=== PATIENT | male | born 1960 | race Caucasian/White ===

== ENCOUNTER 2021-08-14 11:23 | Outpatient (REF) | payer MEDICARE, MEDICAID, SELFPAY ==
[2021-08-14 13:53] LABS: Baso%MD 0.5 %; Eos%MD 7.8 %; Hematocrit 33.6 % (42-52); Hemoglobin 10.8 g/dl (14.0-18.0); IG%MD 0.6 %; Lymph%MD 25.8 %; Mean Corpuscular HGB Conc 32.1 g/dl (31.0-36.0); Mean Corpuscular Hemoglobin 32.7 pg (27.0-33.0); Mean Corpuscular Volume 101.8 fL (80-98); Mean Platelet Volume 10.2 fL (9.4-12.4); Mono%MD 8.2 %; Neut%MD 57.1 %; Platelet Count 268 X10*3/uL (160-400); Red Cell Distribution Width 14.1 % (11.0-16.0)
[2021-08-14 14:05] LABS: Alanine Aminotransferase 19 U/L (0-40); Albumin Level 4.3 g/dL (3.5-5.0); Alkaline Phosphatase 139 U/L (39-117); Anion Gap 10 (12-20); Aspartate Amino Transferase 25 U/L (5-37); Bilirubin Total 3.9 mg/dL (0.0-1.0); Blood Urea Nitrogen 10 mg/dL (9-16); Calcium 9.3 mg/dL (8.4-10.2); Carbon Dioxide 29 mmol/L (22-29); Chloride 102 mmol/L (96-108); Estimated Glomerular Filt Rate > 60; Glucose Random 102 mg/dL (60-115); Lipase 52 U/L (8-78); Potassium 3.9 mmol/L (3.3-5.1); Sodium 137 mmol/L (135-145); Total Protein 7.4 g/dL (6.5-8.0)
[2021-08-14 15:11] LABS: Band Neutrophils Percent 1 % (3-5); Basophils Abs Manual 0.2 X10*3/uL (0.0-0.3); Basophils Percent Manual 2 % (0-1); Eosinophils Absolute Manual 0.9 X10*3/UL (0.0-0.8); Eosinophils Percent Manual 11 % (0-4); Lymphocytes Absolute Manual 1.4 X10*3/uL (0.6-4.8); Lymphocytes Percent Manual 17 % (20-40); Monocytes Absolute Manual 0.5 X10*3/uL (0.0-1.2); Monocytes Percent Manual 6 % (2-11); Neutrophils Absolute Manual 5.1 X10*3/uL (2.2-7.9); Neutrophils Percent Manual 63 % (45-73)
[2021-08-14 15:12] LABS: Platelet Estimate NORMAL (NORMAL); Platelet Morphology Comment NORMAL; RBC Morphology NORMAL
== END 2021-08-14 11:24 | disposition home or self-care (01) ==
LOC: HO.HMGCLDS 11:23
PROVIDERS: PCP Internal Medicine; Visit Provider Physician Assistant Medical
DX: R10.11 Right upper quadrant pain (principal); G89.18 Other acute postprocedural pain
CPT/HCPCS: 36415; 80053; 83690; 85007; 85027

== ENCOUNTER 2022-11-30 01:35 | Emergency (ER) | payer MEDICARE, MEDICAID, SELFPAY ==
--- NOTE | ~2022-11-30 | US_ITS ---
EXAMINATION: US ABDOMEN LIMITED CLINICAL INFORMATION: Right upper quadrant pain. Status post cholecystectomy. COMPARISON: CT abdomen/pelvis done earlier the same day. TECHNIQUE: Real-time imaging of the right upper quadrant abdominal viscera. FINDINGS: PANCREAS: Unremarkable. LIVER: Normal. The liver is normal in size. The liver contour is normal. Parenchymal echogenicity is normal. No focal hepatic lesion. There is no intrahepatic biliary duct dilatation seen. GALLBLADDER: Status post cholecystectomy. COMMON BILE DUCT: Normal in caliber measuring 0.6 cm in diameter. RIGHT KIDNEY: No hydronephrosis. Upper pole simple cyst measuring up to 1.9 cm. Findings are not clinically significant, and no dedicated followup imaging is recommended. The kidney measures 11.3 cm in maximum dimension. FREE FLUID: None. US/US abdomen limited IMPRESSION: Status post cholecystectomy. No intra- or extrahepatic biliary ductal dilatation.
--- NOTE | ~2022-11-30 | CT_ITS ---
EXAMINATION: CT ABDOMEN AND PELVIS WITH CONTRAST CLINICAL INFORMATION: Right lower quadrant pain COMPARISON: None TECHNIQUE: Multidetector volumetric images were obtained from the superior aspect of the liver through the pubic symphysis following administration 85 mL of Omnipaque 350 intravenous contrast. Sagittal and coronal reformatted images were obtained on the technologist's workstation. Oral contrast: No This CT examination was performed using dose optimization techniques as appropriate, variously including the following: *Automated exposure control *Adjustment of mA and/or kV according to patient size (this includes techniques or standardized protocols for targeted exams where dose is matched to indication/reason for exam; i.e. extremities or head) *Use of iterative reconstruction technique DLP: 552 mGy-cm FINDINGS: LUNG BASES: Mild bibasilar atelectasis/scarring. LIVER, GALLBLADDER, AND BILIARY TREE: The liver is normal in size, shape, and attenuation. No focal hepatic lesion or biliary ductal dilatation is present. Gallbladder appears absent. PANCREAS: Unremarkable. SPLEEN: Unremarkable. ADRENAL GLANDS: Unremarkable. KIDNEYS AND URETERS: Bilateral nephrograms are symmetric. No hydronephrosis or obstructing calculus identified. There is an approximately 2 cm right upper pole renal cyst; no follow-up recommended. BLADDER: Mildly distended with a diffusely thick-walled appearance. GASTROINTESTINAL TRACT: No evidence of bowel obstruction or significant wall thickening. There is mild colonic diverticulosis without diverticulitis. Appendix is nondilated. No free fluid or free air is seen. ABDOMINAL WALL: No significant hernia is appreciated. LYMPH NODES: Normal. VASCULAR: There is atherosclerotic calcification along the aorta. PELVIC VISCERA: Unremarkable. OSSEOUS STRUCTURES: Unremarkable. CT/CT abdomen pelvis w IV con IMPRESSION: 1. Diffusely thick-walled appearance of the urinary bladder, which could be due to underdistention versus cystitis in the proper clinical setting. Correlation with urinalysis is recommended. 2. No additional acute findings identified in the abdomen/pelvis.
[2022-11-30 01:38] VITALS: BP 146/60; PULSE 83; RESP 18; TEMP 36.8; O2SAT 100; BMI 27.6
--- NOTE | 2022-11-30 01:54 | ED_ITS ---
HPI - Abdominal Pain General Chief Complaint: Abdominal Pain Stated Complaint: abd pain Time Seen by Provider: 11/30/22 01:57 Source: patient Mode of arrival: ambulatory Limitations: no limitations History of Present Illness HPI narrative: Patient comes to the emergency room complaining of right lower quadrant pain for 2-3 days. Patient states the pain is worse with deep inspirations in certain movements. Patient denies any recent trauma. Patient has history of cholecystectomy. Patient denies nausea vomiting diarrhea, no flank pain, no URI or UTI symptoms. Related Data Home Medications Medication Instructions Recorded Confirmed amlodipine 10 mg tablet 10 mg PO DAILY 06/26/21 08/14/21 aspirin 81 mg tablet,delayed 81 mg PO DAILY 06/26/21 08/14/21 release clopidogrel 75 mg tablet 75 mg PO DAILY 06/26/21 08/14/21 cyanocobalamin (vitamin B-12) 1,000 mcg PO DAILY 06/26/21 08/14/21 1,000 mcg tablet diclofenac sodium 1 % topical gel g topical 06/26/21 08/14/21 dulaglutide 1.5 mg/0.5 mL 1.5 mg subcut QWEEK 06/26/21 08/14/21 subcutaneous pen injector ([facility]) folic acid 1 mg tablet 1 mg PO DAILY 06/26/21 08/14/21 isosorbide mononitrate 60 mg 120 mg PO DAILY 06/26/21 08/14/21 tablet,extended release 24 hr lancets 28 gauge (FreeStyle #100 ea 06/26/21 08/14/21 Lancets) mometasone 0.1 % topical ointment topical BID 06/26/21 08/14/21 pantoprazole 40 mg tablet,delayed 40 mg PO DAILY 06/26/21 08/14/21 release ranolazine 500 mg tablet,extended 500 mg PO BID 06/26/21 08/14/21 release,12 hr rosuvastatin 40 mg tablet 40 mg PO DAILY 06/26/21 08/14/21 furosemide 20 mg tablet 20 mg PO DAILY 08/14/21 08/14/21 insulin glargine 100 unit/mL (3 10 unit subcut QPM 08/14/21 08/14/21 mL) subcutaneous pen (Lantus Solostar U-100 Insulin) Previous Rx's Medication Instructions Recorded cefdinir 300 mg capsule 300 mg PO Q12H 7 days #14 caps 08/14/21 ofloxacin 0.3 % ear drops 10 drp otic (ears) DAILY 7 days 08/14/21 #10 mL Allergies Allergy/AdvReac Type Severity Reaction Status Date / Time egg Allergy Mild Rash Verified 11/30/22 01:41 glipizide Allergy Unknown Verified 11/30/22 01:41 lisinopril Allergy Unknown Verified 11/30/22 01:41 Review of Systems Review of Systems Constitutional : No Weight loss, No Fever, No Chills, No Night Sweats, No Fatigue, No Malaise ENT/Mouth : No Hearing loss, No Ear Pain, No Nasal Congestion, No Sinus Pain, No Hoarseness, No sore throat, No Rhinorrhea, No Swallowing Difficulty Eyes: No Eye Pain, No Swelling, No Redness, No Foreign Body, No Discharge, No Vision Changes Cardiovascular : No Chest Pain, No SOB, No Dyspnea on Exertion, No Orthopnea, No Edema, No Palpitations Respiratory : No Cough, No Sputum, No Wheezing, No Smoke Exposure, No Dyspnea Gastrointestinal : No Nausea, No Vomiting, No Diarrhea, No Constipation, complaining of constant right lower quadrant pain, nonradiating Genitourinary : no irregular bleeding, No Dysuria, No Urinary Frequency, No Hematuria, No Urinary Incontinence, No Urgency, No Flank Pain, No Urinary Flow Changes, No Hesitancy Musculoskeletal : No joint pain, No Myalgias, No Joint Swelling Skin : No Skin Lesions, No rash Neuro : No Weakness, No Numbness, No Paresthesias, No Loss of Consciousness, No Dizziness, No Headache Psych : No Anxiety/Panic, No Depression, No SI/HI/AH/VH, No Social Issues, Heme/Lymph: No Bruising, No Bleeding,No Lymphadenopathy Endocrine : No Polyuria, No Polydipsia, No Temperature Intolerance [facility] Past Medical History Medical History (Updated 11/30/22 @ 05:58 by Jo Ann Israel MD) Diabetes FH: cholecystectomy GERD with apnea Hypertension Social History Social History Advance Directives: No Advance Directives Information Provided: Yes Physical Exam ED Vital Signs: Vital Signs - 24 hr 11/30/22 01:38 11/30/22 02:25 Temperature 98.2 F 98.0 F Pulse Rate 83 84 Respiratory Rate 18 17 Blood Pressure 146/60 H 115/56 L Pulse Oximetry 100 96 Oxygen Delivery Method Room Air Room Air BMI result Body Mass Index 27.6 Medical Decision Making Medical Decision Making [facility] Narrative: -patient seems to have chronically elevated LFTs. However, patient has once again right upper quadrant pain. -we do not have MRI/MRCP available today in [facility] -I discussed the patient with Dr. Oneil from GI, recommends ultrasound and then will follow up with Dr. Oneil -patient was given 2 mg of IV morphine for pain control -I was informed that our crown and bridge dental lab technician will be here at 07:30 -also, Dr. Oneil requested hemolysis labs, LDH, haptoglobin and reticulocyte count pending -sign-out given to Dr. Ambriz Lab Data 11/30/22 02:05 11/30/22 01:51 Labs: Lab Results 11/30/22 11/30/22 11/30/22 Range/Units 01:51 02:05 02:17 WBC 9.7 (4.8-10.8) X10*3/uL RBC 3.56 L (4.60-5.80) X10*6/uL Hgb 11.7 L (14.0-18.0) g/dl Hct 34.7 L (42.0-52.0) % MCV 97.5 (80.0-98.0) fL MCH 32.9 (27.0-33.0) pg MCHC 33.7 (31.0-36.0) g/dl RDW 13.3 (11.0-16.0) % Plt Count 255 (160-400) X10*3/uL MPV 9.7 (9.4-12.4) fL Immature Gran % (Auto) 0.7 H (0.0-0.4) % Neut % (Auto) 61.9 (45-73) % Lymph % (Auto) 22.9 (20-40) % [place] % (Auto) 8.4 (2-11) % Eos % (Auto) 5.4 H (0-4) % Baso % (Auto) 0.7 (0-2) % Lymph # (Auto) 2.2 (1.2-4.9) X10*3/uL [place] # (Auto) 0.8 (0.1-1.2) X10*3/uL Eos # (Auto) 0.5 H (0.0-0.4) X10*3/uL Baso # (Auto) 0.1 (0.0-0.2) X10*3/uL Abs Immat Gran (auto) 0.07 H (0.00-0.03) X10*3/uL Absolute Neuts (auto) 6.0 (2.0-8.3) x10*3/uL Absolute Nucleated RBC 0.000 (0.0-0.012) X10*3/uL Nucleated RBC % (auto) 0.0 (0.0-0.2) /100WBC Sodium 140 (135-145) mmol/L Potassium 3.9 (3.3-5.1) mmol/L Chloride 104 (96-108) mmol/L Carbon Dioxide 24 (22-29) mmol/L Anion Gap 16 (12-20) BUN 16 (9-16) mg/dL Creatinine 1.20 (0.5-1.4) mg/dL Estim Creat Clear Calc 67.7 Estimated GFR > 60 Random Glucose 140 H (60-115) mg/dL Calcium 9.0 (8.4-10.2) mg/dL Total Bilirubin 3.5 H (0.0-1.0) mg/dL Direct Bilirubin 0.7 H (0.0-0.5) mg/dL AST 19 (5-37) U/L ALT 13 (0-40) U/L Alkaline Phosphatase 90 (39-117) U/L Total Protein 6.7 (6.5-8.0) g/dL Albumin 4.0 (3.5-5.0) g/dL Lipase 87 H (8-78) U/L Urine Color Dark Yellow Urine Appearance Clear Urine pH 6.5 (5.0-9.0) Ur Specific [place] 1.025 (1.005-1.025) Urine Protein Trace (Neg-Trace) mg/dL Urine Glucose (UA) Negative (Negative) mg/dL Urine Ketones Trace (Negative) mg/dL Urine Blood Negative (Negative) Urine Nitrite Negative (Negative) Ur Leukocyte Esterase Negative (Negative) Medications Administered Discontinued Medications Generic Name Dose Route Start Last Admin Trade Name Freq PRN Reason Stop Dose Admin Iohexol 85 ml 11/30/22 02:39 11/30/22 02:40 Iohexol 350 Mg/Ml 100 Ml Infus..Btl IV 11/30/22 02:40 85 ml ONCE ONE Administration Discharge Plan Discharge Clinical Impression: Abdominal pain, acute, right upper quadrant Patient Disposition: Still a Patient Prescriptions: No Action cyanocobalamin (vitamin B-12) 1,000 mcg tablet 1,000 mcg PO DAILY aspirin 81 mg tablet,delayed release (DR/EC) 81 mg PO DAILY diclofenac sodium 1 % gel topical folic acid 1 mg tablet 1 mg PO DAILY Trulicity 1.5 mg/0.5 mL pen injector 1.5 mg subcut QWEEK mometasone 0.1 % ointment topical BID clopidogrel 75 mg tablet 75 mg PO DAILY (DME) lancets [FreeStyle Lancets] 28 gauge misc See Rx Instructions topical TID Qty: 100 Rx Instructions: As directed ranolazine 500 mg tablet extended release 12 hr 500 mg PO BID pantoprazole 40 mg tablet,delayed release (DR/EC) 40 mg PO DAILY amlodipine 10 mg tablet 10 mg PO DAILY isosorbide mononitrate 60 mg tablet extended release 24 hr 120 mg PO DAILY rosuvastatin 40 mg tablet 40 mg PO DAILY Lantus Solostar U-100 Insulin 100 unit/mL (3 mL) insulin pen 10 unit subcut QPM furosemide 20 mg tablet 20 mg PO DAILY cefdinir 300 mg capsule 300 mg PO Q12H 7 Days Qty: 14 0RF ofloxacin 0.3 % drops 10 drp otic (ears) DAILY 7 Days Qty: 10 0RF
[2022-11-30 02:11] LABS: Basophils Absolute Auto 0.1 X10*3/uL (0.0-0.2); Basophils Percent Auto 0.7 % (0-2); Eosinophils Absolute Auto 0.5 X10*3/uL (0.0-0.4); Eosinophils Percent Auto 5.4 % (0-4); Hematocrit 34.7 % (42.0-52.0); Hemoglobin 11.7 g/dl (14.0-18.0); Imm Gran Abs Auto 0.07 X10*3/uL (0.00-0.03); Imm Gran Pct Auto 0.7 % (0.0-0.4); Lymphocytes Absolute Auto 2.2 X10*3/uL (1.2-4.9); Lymphocytes Percent Auto 22.9 % (20-40); MANUAL DIFF FLAG NO; Mean Corpuscular HGB Conc 33.7 g/dl (31.0-36.0); Mean Corpuscular Hemoglobin 32.9 pg (27.0-33.0); Mean Corpuscular Volume 97.5 fL (80.0-98.0); Mean Platelet Volume 9.7 fL (9.4-12.4); Monocytes Absolute Auto 0.8 X10*3/uL (0.1-1.2); Monocytes Percent Auto 8.4 % (2-11); Neutrophils Percent Auto 61.9 % (45-73); Platelet Count 255 X10*3/uL (160-400); Red Blood Count 3.56 X10*6/uL (4.60-5.80); Red Cell Distribution Width 13.3 % (11.0-16.0); White Blood Count 9.7 X10*3/uL (4.8-10.8)
[2022-11-30 02:15] LABS: Alanine Aminotransferase 13 U/L (0-40); Alkaline Phosphatase 90 U/L (39-117); Anion Gap 16 (12-20); Aspartate Amino Transferase 19 U/L (5-37); Bilirubin Direct 0.7 mg/dL (0.0-0.5); Bilirubin Total 3.5 mg/dL (0.0-1.0); Blood Urea Nitrogen 16 mg/dL (9-16); Carbon Dioxide 24 mmol/L (22-29); Chloride 104 mmol/L (96-108); Creatinine Clr Calc Pharmacy 67.7; Estimated Glomerular Filt Rate > 60; Glucose Random 140 mg/dL (60-115); Lipase 87 U/L (8-78); Potassium 3.9 mmol/L (3.3-5.1); Sodium 140 mmol/L (135-145); Total Protein 6.7 g/dL (6.5-8.0)
[2022-11-30 02:23] LABS: Appearance Urine Clear; Color Urine Dark Yellow; Glucose Urine UA Negative (Negative); Leukocyte Esterase Urine Negative (Negative); Nitrite Urine Negative (Negative); PH 6.5 (5.0-9.0); Specific Gravity - Urine 1.025 (1.005-1.025); Urine Blood Negative (Negative); Urine Ketones Trace mg/dL (Negative); Urine Protein Trace mg/dL (Neg-Trace)
[2022-11-30 02:25] VITALS: BP 115/56; PULSE 84; RESP 17; TEMP 36.7; O2SAT 96
--- NOTE | 2022-11-30 02:26 | MHC.EDTECH ---
pt vitals were updated and urine was sent it look orange in color nurse aware and his pain level is 5\6
[2022-11-30] MEDS: iohexoL 350 MG/ML 100 ML INFUS..BTL 85 ML IV (02:40)
[2022-11-30 06:06] VITALS: BP 104/51; PULSE 83; RESP 16; O2SAT 98
[2022-11-30] MEDS: Morphine Sulfate 2 MG/ML CARTRIDGE IVPUSH (06:14)
[2022-11-30 06:18] LABS: Immature Retic Fraction 24.4 % (2.3-13.4); Retic HGB Equivalent 35.5 pg (30.0-35.0); Reticulocyte Percent 7.2 % (0.5-1.8); Reticulocytes Absolute 0.252 X10*6/uL (0.026-0.095)
--- NOTE | 2022-11-30 06:19 | PC.NURSE ---
I assumed nursing care of Paulo upon his arrival to bed 20 from the waiting room. He presents for evaluation of R sided abdominal pain, states he has had his gall bladder removed in the past. He appears well. He denies nausea, denies vomiting. No chest pain. No shortness of breath. Skin warm and dry. IV access/labs obtained. Pt is resting in bed, awaiting MD dispo.
[2022-11-30 06:46] LABS: Lactate Dehydrogenase 238 U/L (118-273)
[2022-11-30 08:59] VITALS: BP 127/65; PULSE 74; RESP 19; O2SAT 98
[2022-12-02 14:17] LABS: Haptoglobin <8 mg/dL (43-212)
== END 2022-11-30 09:15 | disposition home or self-care (01) ==
PROVIDERS: Emergency Provider Emergency Medicine
DX: R10.31 Right lower quadrant pain (principal); R10.11 Right upper quadrant pain; Z79.899 Other long term (current) drug therapy
CPT/HCPCS: 36415; 74177; 76705; 80048; 80076; 81003; 83010; 83615; 83690; 85025; 85045; 96374; 99283; 99284; J2270; Q9967